=== PATIENT | male | born 1970 ===

== ENCOUNTER 2021-08-03 09:54 | Inpatient (IN) | payer BC ==
[~2021-08-03] VITALS: Ht 188 cm; Wt 113.5 kg
[2021-09-04] VITALS (11 sets, daily range): BP systolic 115–146; BP diastolic 58–87; PULSE 55–68; TEMP 97.9–99.1
[2021-09-04] MEDS ORDERED: NORVASC 10MG10 MG PO (05:51)
[2021-09-04] MEDS ORDERED: COZAAR 50MG50 MG/TAB PO (05:52)
[2021-09-04] MEDS ORDERED: HCTZ12.5TAB PO (05:52)
[2021-09-04] MEDS ORDERED: PRILOTC PO (05:52)
[2021-09-04 06:17] LABS: BASO % 0.6 % (0.0-2.0); EOS # 0.1 K/mm3 (0.0-0.7); EOS % 1.9 % (0-4.0); GRAN # 2.6 K/mm3 (1.4-6.5); GRAN % 53.8 % (42.2-75.2); HEMATOCRIT 42.8 % (42.0-52.0); HEMOGLOBIN 15.4 g/dl (13.5-18.0); LYMPH # 1.7 K/mm3 (1.2-3.4); LYMPH % 35.4 % (20.0-51.0); MEAN CELL VOLUME 90 fl (80.0-100.0); MEAN CORPUSCULAR HEMOGLOBIN 33 pg (27.0-31.0); MEAN CORPUSCULAR HGB CONC 36 g/dl (33.0-37.0); MEAN PLATELET VOLUME 10.7 fl (7.4-10.4); MONO # 0.4 K/mm3 (0.1-0.6); MONO % 7.9 % (1.7-9.3); PLATELET COUNT 278 K/mm3 (130-400); RED BLOOD COUNT 4.74 M/mm3 (4.20-5.60)
[2021-09-04 07:26] LABS: ALBUMIN 3.5 gm/dL (3.5-5.0); BILIRUBIN,TOTAL 1.2 mg/dL (0.2-1.2); CALCIUM 8.8 mg/dL (8.4-10.2); CREATININE, serum 0.87 mg/dL (0.72-1.25); POTASSIUM 4.2 mmol/L (3.5-4.5)
--- NOTE | 2021-09-04 11:15 | NUR ---
PATIENT IS A&O. VSS. ONLY C/O RECTAL PRESSURE POST OP. FIELD TO DD WITH SMALL AMOUNTS OF PINK URINE NOTED. IV FLUIDS INFUSING INTO LEFT HAND. NO C/O N/V. LIQUIDS AT BEDSIDE. ABD LAP SITES X6 WITH GLUED CLOSURE. HEAD TO TOE ASSESSMENT COMPLETE. ORIENTED TO ROOM. AT BEDSIDE. CALL LIGHT IN REACH.
--- NOTE | 2021-09-04 19:30 | NUR ---
Pt. sitting up in bed. Pt. is A&OX3, assessment complete. IV to lt. hand patent, IV fluids infusing per orders. Pt. denies pain or other needs, call light within reach.
[2021-09-05 04:34] VITALS: BP 141/68; PULSE 54; TEMP 97.6
[2021-09-05 07:15] LABS: CALCIUM 8.9 mg/dL (8.4-10.2); CREATININE, serum 0.94 mg/dL (0.72-1.25); POTASSIUM 4.3 mmol/L (3.5-4.5)
[2021-09-05 07:28] LABS: HEMATOCRIT 34.8 % (42.0-52.0)
[2021-09-05 07:57] VITALS: BP 132/70; PULSE 54; TEMP 97.9
--- NOTE | 2021-09-05 09:11 | NUR ---
PT A/O X3, PT POSSIBLY DISCHARGING LATER THIS PM. DR. PARRISH IN TO SEE PT THIS AM. WILL CHECK ON PT PROGRESS AND DISCHARGE LATER THIS PM. PINK URINE IN BAG. PT DENIES NEEDS AT THIS TIME.
--- NOTE | 2021-09-05 09:21 | NUR ---
National Sales Director met with patient to discuss discharge planning. Patient lives in [place], [place] with his , Fabiola (ph#[phone]) and sees Dr. Rizo for primary care in [place]. Patient obtains medications from [facility] [place] with no difficulties. Patient is employed at [employer]. Patient does not use DME and is independent with [employer]. Patient does not have Advance Directives and is not interested in establishing DPOA-HC at this time. Patient plans to return home upon discharge and advised he has a ride home. Discharge Plan: Home
--- NOTE | 2021-09-05 10:53 | NUR ---
Initial visit; Patient thanked Manager Of Training And Development for offering God's blessings.
[2021-09-05 11:28] VITALS: BP 123/68; PULSE 55; TEMP 98.1
--- NOTE | 2021-09-05 15:22 | NUR ---
DISCHARGE INSTRUCTIONS REVIEWED WITH PATEINT AND . LEG BAG TEACHING COMPLETE. PT LEFT FLOOR PER WHEEL CHAIR.
== END 2021-09-05 14:48 | disposition home or self-care (01) | DRG 708 ==
LOC: SURG 09-04 05:31 → INPTSU 09-04 05:31 → SURG 09-04 07:30
PROVIDERS: ADMIT Urology
PROC: 8E0W4CZ Robotic Assisted Procedure of Trunk Region, Percutaneous Endoscopic Approach (ICD-10-PCS; 2021-09-04)
PROC: 0VT04ZZ Resection of Prostate, Percutaneous Endoscopic Approach (ICD-10-PCS; principal; 2021-09-04 07:30)
DX: C61 Malignant neoplasm of prostate (principal); K21.9 Gastro-esophageal reflux disease without esophagitis; I10 Essential (primary) hypertension; Z86.711 Personal history of pulmonary embolism
CPT/HCPCS: A4314; A9284; J0330; J0690; J1100; J1885; J2370; J2405; J2704; J3010; J7050; J7120